=== PATIENT | female | born 1995 | race Caucasian/White ===

== ENCOUNTER 2018-02-07 00:22 | Inpatient (IN) | payer BC, OTHER ==
[2018-02-07 00:55] VITALS: BMI 35.9
[2018-02-07] MEDS ORDERED: Butorphanol Tartrate 1 MG/ML VIAL SLOW IVP PRN (01:11)
[2018-02-07] MEDS ORDERED: Lidocaine 1% (PF) 30 ML VIAL SC PRN (01:11)
[2018-02-07] MEDS ORDERED: HYDROcodone/Acetaminophen 5/325 mg Tablet PO PRN ×2 (01:11)
[2018-02-07] MEDS ORDERED: Ondansetron HCl/PF 4 MG/2 ML Vial IVP PRN ×2 (01:11→08:38)
[2018-02-07] MEDS ORDERED: Ibuprofen 800 MG TAB PO PRN (01:11)
[2018-02-07] MEDS ORDERED: NS / Oxytocin 40 units/1000ml 1,000 ML IV PRN (01:11)
[2018-02-07] MEDS ORDERED: Promethazine HCl 25 MG/ML VIAL IM PRN ×2 (01:11→08:38)
[2018-02-07] MEDS ORDERED: NS w/ Oxytocin 10 units 500 ML IV SCH (01:15)
[2018-02-07] MEDS ORDERED: Lactated Ringer's 1,000 ML IV SCH (01:15)
[2018-02-07] MEDS ORDERED: Penicillin G Potassium 5 MILL.UNITS in Sodium Chloride 0.9% 100 ML IVPB SCH (01:15)
[2018-02-07] MEDS: Lactated Ringer's 1,000 ML IV SCH ×3 (01:20→08:27)
--- NOTE | 2018-02-07 01:21 | PDOC.LDHP ---
Labor and Delivery H&P Chief complaint: contractions HPI: 22 yo WF c/o UCs since earlier tonight. Denies SROM or bleeding. Current gestational age (weeks): 39 Due date: 02/12/18 Dating criteria: last menstrual period Grav: 2 Para: 1 OB History Details: PNC with Dr. Herring w/o problems. Current complications: none Abnormal US findings: No Past Medical History: None Current medications: pre-wesly vitamins Previous surgical history: none Allergies/Adverse Reactions: Allergies Allergy/AdvReac Type Severity Reaction Status Date / Time No Known Allergies Allergy Verified 02/07/18 00:49 Social history: none - Physical Exam General: NAD, breathing through contractions Heart: RRR Lungs: nonlabored breathing Abdomen: gravid Extremeties: trace edema FHT: category 1 [place] contractions every: UCs q 5 mins - Vaginal Exam cm dilated: 6 - OB Labs Blood type: O RH: positive Antibody Screen: negative HIV: negative RPR: negative HEPSAg: negative 1 hour GCT: negative GBS: positive Rubella: immune - Assessment L&D Assessment: term patient in labor - Plan Plan: admit to L&D -: ABX in labor for +GBS
[2018-02-07 01:44] LABS: Hemoglobin 12.4 g/dL (12.0-16.0); Mean Corpuscular HGB CONC 35.1 g/dL (32.0-36.0); Mean Corpuscular Hemoglobin 33.3 pg (27.0-31.0); Mean Corpuscular Volume 94.8 fl (81.0-99.0); Mean Platelet Volume 6.9 fL (7.4-10.4); Platelet Count 213 thou/uL (130-400); RBC Distribution Width 11.8 % (11.5-14.5); Red Blood Cell (RBC) Count 3.72 mill/uL (4.20-5.40); White Blood Cell (WBC) Count 10.7 thou/uL (4.8-10.8)
[2018-02-07 02:19] LABS: HBSAg Index 0.48 S/CO (0-0.99); Hep B Surf Ag Non-Reactive S/CO (NonReactive)
[2018-02-07 05:18] LABS: Syphilis Antibody Nonreactive (Nonreactive); Syphilis Antibody Index 0.05 S/CO (<1.00 Non-Reactive)
[2018-02-07] MEDS: Penicillin G 2.5 MILL.units 2.5 MILL.UNITS in Premix Bag 1 BAG IVPB SCH ×2 (06:13→10:00)
[2018-02-07] MEDS ORDERED: DISCONTINUE ALL PREVIOUS NARCOTICS FS SCH (07:30)
[2018-02-07] MEDS ORDERED: Bupivacaine 0.5% 20 ML, fentaNYL Citrate/PF 400 MCG in Sodium Chloride 0.9% 72 ML EPIDURAL SCH (07:30)
[2018-02-07] MEDS ORDERED: Acetaminophen 325 MG TAB PO PRN (08:38)
[2018-02-07] MEDS ORDERED: Lactated Ringer's 500 ML IV PRN (08:38)
[2018-02-07] MEDS ORDERED: diphenhydrAMINE 50 MG/ML VIAL IVP PRN (08:38)
[2018-02-07] MEDS ORDERED: Naloxone HCl 0.4 mg/ml Vial IVP PRN ×2 (08:38)
[2018-02-07] MEDS ORDERED: Eucerin (Mineral Oil/Petrolatum,White) 30 gm Jar TOP PRN (08:38)
[2018-02-07] MEDS ORDERED: ePHEDrine/0.9% NaCl/PF SYRINGE 50 mg/10 ml SLOW IVP PRN (08:38)
[2018-02-07] MEDS ORDERED: Fentanyl 4mcg/Marcaine 0.1% Cassette 100 ML EPIDURAL SCH (08:45)
[2018-02-07] MEDS ORDERED: Communication Order-Pharmacy FS SCH (08:45)
[2018-02-07] MEDS ORDERED: ePHEDrine/0.9% NaCl/PF SYRINGE 50 mg/10 ml ONE (11:11)
[2018-02-07] MEDS ORDERED: Bupivacaine/Epinephrine 0.25% 30 ML VIAL ONE (11:11)
[2018-02-07] MEDS ORDERED: NS / Oxytocin 40 units/1000ml 1,000 ML ONE (11:35)
[2018-02-07] MEDS ORDERED: Lidocaine 1% (PF) 30 ML VIAL ONE (11:35)
--- NOTE | 2018-02-07 12:10 | PDOC.OPDEL ---
OB Operative/Delivery Note Delivery Dr/Surgeon: Kimberly Dietrich DO Pre-Delivery Diagnosis: active labor Procedure/Post Delivery Dx: spontaneous vaginal delivery Weeks gestation: 39 Anesthesia: epidural - Findings A Sex: female - 1 min: 9 - 5 min: 9 - Additional Findings/Plan Placenta delivered: spontaneous Repaired Obstetrical Laceration: none Estimated blood loss: 400 cc Compilations/Other Findings: Infant in cephalic presentation, BRAD position. Post delivery plan: routine recovery
[2018-02-07] MEDS ORDERED: Preparation H Ointment 28 GM TUBE PR PRN (12:35)
[2018-02-07] MEDS ORDERED: Methylergonovine 0.2 MG/ML VIAL IM PRN (12:35)
[2018-02-07] MEDS ORDERED: traMADol HCl 50 MG TAB PO PRN ×2 (12:35)
[2018-02-07] MEDS ORDERED: NS / Oxytocin 40 units/1000ml 1,000 ML IV SCH (12:35)
[2018-02-07] MEDS ORDERED: Milk Of Magnesia 30 ML UDCUP PO PRN (12:35)
[2018-02-07] MEDS ORDERED: Bisacodyl 10 MG SUPP PR PRN (12:35)
[2018-02-07] MEDS ORDERED: Misoprostol 200 MCG TAB VAG PRN (12:35)
[2018-02-07] MEDS ORDERED: diphenhydrAMINE 25 MG CAP PO PRN (12:35)
[2018-02-07] MEDS ORDERED: Benzocaine/Menthol 20-0.5% 60 ML CAN TOP PRN (12:35)
[2018-02-07] MEDS: Ibuprofen 800 MG TAB PO SCH ×2 (14:45→22:14)
[2018-02-07] MEDS: Docusate Calcium (SURFAK) 240 MG CAP PO SCH (22:14)
[2018-02-08 05:44] LABS: Hemoglobin 11.8 g/dL (12.0-16.0); Mean Corpuscular HGB CONC 34.4 g/dL (32.0-36.0); Mean Corpuscular Volume 95.9 fl (81.0-99.0); Platelet Count 176 thou/uL (130-400); RBC Distribution Width 11.8 % (11.5-14.5); Red Blood Cell (RBC) Count 3.57 mill/uL (4.20-5.40)
[2018-02-08] MEDS: Ibuprofen 800 MG TAB PO SCH ×2 (06:04→14:16)
--- NOTE | 2018-02-08 06:08 | PDOC.PP ---
Post Progress Note Post Day #: 1 Subjective: Doing well. Would prefer PM dsch today as not first delivery PO intake tolerated: yes Flatus: yes Ambulation: yes Vital Signs (12 hours) Temp Pulse Resp BP Pulse Ox 02/08/18 06:00 59 L 18 109/59 L 98 02/07/18 23:47 98.6 F 62 18 120/54 L 18 L 02/07/18 20:57 98.2 F 66 18 106/56 L 98 Weight Weight 209 lb - Physical Examination Cardiovascular: no m/r/g Respiratory: clear to auscultation bilaterally Abdominal: + bowel sounds, lochia, no distention Extremities: negative homans (B) Neurological: no gross focal deficits Psychiatric: A&Ox3, normal affect Result Diagrams: 02/08/18 05:23 Additional Labs: Post Labs Blood Type O POSITIVE 02/07/18 01:29 Hep Bs Antigen Non-Reactive S/CO (NonReactive) 02/07/18 01:29 (1) Vaginal delivery Code(s): O80 - ENCOUNTER FOR FULL-TERM UNCOMPLICATED DELIVERY Status: Acute - Assessment/Plan Day 2...desires discharge to home this PM Home with motrin prn F/U with [facility] in 3-4 weeks
--- NOTE | 2018-02-08 06:09 | PDOC.EVN ---
Event Note - Event Note Event Note: DISCHARGE NOTE Please see handwritten discharge summary in paper record S/P Home on 02/08/18.
--- NOTE | 2018-02-08 08:11 | PDOC.EVN ---
Event Note - Event Note Event Note: ADDENDUM: Baby GBS positive and if needs 48 hours observation, will hold maternal DC until tomorrow AM
[2018-02-08 08:58] VITALS: BP 111/53; TEMP 98.1
[2018-02-08] MEDS ORDERED: Prenatal Vitamin 1 TAB PO SCH (09:00)
[2018-02-08] MEDS: Docusate Calcium (SURFAK) 240 MG CAP PO SCH (09:50)
== END 2018-02-08 17:07 | disposition home or self-care (01) | DRG 775 ==
LOC: L&D/OP 00:22 → L&D 01:06 → 3SE 15:31
PROVIDERS: ADMIT Obstetrics & Gynecology; ATTEND Obstetrics & Gynecology
PROC: 10E0XZZ Delivery of Products of Conception, External Approach (ICD-10-PCS; principal; 2018-02-07)
DX: O76 Abnormality in fetal heart rate and rhythm complicating labor and delivery (principal); Z3A.39 39 weeks gestation of pregnancy; Z37.0 Single live birth; O99.824 Streptococcus B carrier state complicating childbirth
CPT/HCPCS: 36415; 51702; 85027; 86780; 86850; 86900; 86901; 87340; 99285; J2001; J2405; J2540; J3010; J3490; J7050